=== PATIENT | female | born 1975 | race Caucasian/White ===

== ENCOUNTER 2018-09-23 10:32 | Inpatient (IN) | payer MEDICAID ==
[2018-09-23 11:04] LABS: RUPTURE FETAL MEMBRANES POSITIVE (NEGATIVE)
[2018-09-23] MEDS ORDERED: METHYLERGONOVINE 0.2 MG INJ IM ×2 (13:00→19:30)
[2018-09-23] MEDS ORDERED: OXYTOCIN 30 UNITS/LR 500 ML IV ×2 (13:00→19:30)
[2018-09-23] MEDS ORDERED: MISOPROSTOL 200 MCG TAB PR ×2 (13:00→19:30)
[2018-09-23] MEDS ORDERED: CARBOPROST 250 MCG INJ IM ×2 (13:00→19:30)
[2018-09-23 13:48] LABS: ADD MAN DIFF? NO
[2018-09-23 13:49] LABS: BASOPHILS % 0.2 % (0.0-2.0); EOSINOPHILS % 0.4 % (0.0-7.0); HEMATOCRIT 37.5 % (37.0-47.0); HEMOGLOBIN 12.6 g/dl (12.0-16.0); LYMPHOCYTES # 1.2 10^3/ul (0.8-2.9); LYMPHOCYTES % 13.2 % (15.0-51.0); MEAN CORPUSCULAR HEMOGLOBIN 32.2 pg (29.0-33.0); MEAN CORPUSCULAR HGB CONC 33.6 g/dl (32.0-37.0); MEAN CORPUSCULAR VOLUME 95.9 fl (82.0-101.0); MEAN PLATELET VOLUME 9.6 fl (7.4-10.4); MONOCYTE # 0.6 10^3/ul (0.3-0.9); MONOCYTES % 6.1 % (0.0-11.0); NEUTROPHIL # 7.3 10^3/ul (1.6-7.5); NEUTROPHILS % 79.9 % (39.0-77.0); PLATELET COUNT 213 10^3/UL (140-415); RED BLOOD COUNT 3.91 10^6/ul (4.20-5.40)
[2018-09-23 13:49] LABS: WHITE BLOOD COUNT 9.1 10^3/ul (4.8-10.8)
[2018-09-23 14:08] LABS: INR 0.79; PROTIME 11.1 Sec (11.9-14.9); PT RATIO 0.9
[2018-09-23 14:09] LABS: PARTIAL THROMBOPLASTIN TIME 24.5 Sec (23.0-35.0)
[2018-09-23 15:23] LABS: HEPATITIS B SURFACE ANTIGEN NEGATIVE (NEGATIVE)
[2018-09-23] MEDS ORDERED: OXYTOCIN 30 UNITS/LR 500 ML BAG IV (18:26)
[2018-09-23] MEDS ORDERED: DEXAMETHASONE 4 MG/ML 1 ML INJ (18:27)
[2018-09-23] MEDS ORDERED: ONDANSETRON 4 MG INJ (18:28)
[2018-09-23] MEDS: AZITHROMYCIN 500MG/NS (PMX) 250 ML IVPB (18:30)
[2018-09-23] MEDS ORDERED: morphine SULFATE/PF (10 MG/10 ML) INJ (18:35)
[2018-09-23] MEDS ORDERED: FENTAnyl 50 MCG/ML VIAL (18:36)
[2018-09-23] MEDS ORDERED: PHENYLephrine (100 MCG/ML) 10ML SYG (18:56)
[2018-09-23] MEDS ORDERED: HYDROmorphONE 0.5 MG/0.5 ML SYG IV ×2 (19:00)
[2018-09-23] MEDS ORDERED: NALOXONE (0.4 MG/ML) INJ IV (19:00)
[2018-09-23] MEDS ORDERED: ZOLPIDEM 5 MG TAB PO (19:00)
[2018-09-23] MEDS ORDERED: ONDANSETRON 4 MG INJ IV ×2 (19:00→19:30)
[2018-09-23 19:25] LABS: RAPID PLASMA REAGIN NONREACTIVE (NR)
[2018-09-23] MEDS: OXYTOCIN 30 UNITS/LR 500 ML IV ×2 (19:28→23:54)
[2018-09-23] MEDS: CEFAZOLIN 2 GM/50 ML (PMX) 50 ML IVPB (19:29)
[2018-09-23] MEDS ORDERED: ACETAMINOPHEN 325 MG TAB PO (19:30)
[2018-09-23] MEDS ORDERED: BENZOCAINE 20% 56 ML SPRAY TOP (19:30)
[2018-09-23] MEDS ORDERED: NACL 0.9% 3 ML SYG IV (19:30)
[2018-09-23] MEDS ORDERED: WITCH HAZEL/GLYCERIN PAD PR (19:30)
[2018-09-23] MEDS ORDERED: OXYCODONE/ASPIRIN (4.88/325) TAB PO (19:30)
[2018-09-23] MEDS: DIPHENHYDRAMINE 50 MG INJ IV (20:06)
[2018-09-23] MEDS: LACTATED RINGER'S 1,000 ML IV ×2 (20:42)
[2018-09-23] MEDS: SENNA/DOCUSATE NA (8.6MG/50MG) TAB PO (21:20)
[2018-09-23] MEDS ORDERED: CEFAZOLIN 2 GM/50 ML (PMX) 50 ML IVPB (22:00)
[2018-09-23] MEDS: KETOROLAC 30 MG INJ IV (23:06)
[2018-09-24] MEDS: CEFAZOLIN 2 GM/50 ML (PMX) 50 ML IVPB ×3 (02:14→17:48)
[2018-09-24] MEDS: LACTATED RINGER'S 1,000 ML IV ×2 (04:42→10:09)
[2018-09-24] MEDS: IBUPROFEN 800 MG TAB PO ×4 (06:00→18:00)
[2018-09-24 07:15] LABS: ADD MAN DIFF? NO
[2018-09-24 07:23] LABS: WHITE BLOOD COUNT 12.9 10^3/ul (4.8-10.8)
[2018-09-24 07:23] LABS: BASOPHILS % 0.1 % (0.0-2.0); HEMATOCRIT 35.7 % (37.0-47.0); HEMOGLOBIN 11.9 g/dl (12.0-16.0); LYMPHOCYTES % 7.7 % (15.0-51.0); MEAN CORPUSCULAR HEMOGLOBIN 32.5 pg (29.0-33.0); MEAN CORPUSCULAR HGB CONC 33.3 g/dl (32.0-37.0); MEAN CORPUSCULAR VOLUME 97.5 fl (82.0-101.0); MONOCYTE # 0.6 10^3/ul (0.3-0.9); MONOCYTES % 4.6 % (0.0-11.0); NEUTROPHIL # 11.3 10^3/ul (1.6-7.5); NEUTROPHILS % 87.1 % (39.0-77.0); PLATELET COUNT 218 10^3/UL (140-415); RED BLOOD COUNT 3.66 10^6/ul (4.20-5.40)
[2018-09-24] MEDS: SENNA/DOCUSATE NA (8.6MG/50MG) TAB PO ×2 (10:04→20:49)
[2018-09-24] MEDS: KETOROLAC 30 MG INJ IV (16:15)
[2018-09-24] MEDS: LANOLIN HPA 1 PKT TOP (20:50)
[2018-09-24] MEDS: OXYCODONE/ASPIRIN (4.88/325) TAB PO (22:59)
[2018-09-25] MEDS: IBUPROFEN 800 MG TAB PO ×5 (00:58→23:55)
[2018-09-25] MEDS: OXYCODONE/ASPIRIN (4.88/325) TAB PO ×2 (07:44→20:31)
[2018-09-25] MEDS: SENNA/DOCUSATE NA (8.6MG/50MG) TAB PO ×2 (10:18→20:31)
[2018-09-26] MEDS: IBUPROFEN 800 MG TAB PO ×2 (05:55→11:30)
[2018-09-26] MEDS: SENNA/DOCUSATE NA (8.6MG/50MG) TAB PO (09:14)
== END 2018-09-26 15:44 | disposition home or self-care (01) | DRG 788 ==
LOC: OBT 10:32 → L-D 10:33 → OBT 11:23 → L-D 11:31 → PP1 21:15
PROVIDERS: Obstetrics & Gynecology
PROC: 10D00Z1 Extraction of Products of Conception, Low, Open Approach (ICD-10-PCS; principal; 2018-09-23 16:00)
DX: O42.92 Full-term premature rupture of membranes, unspecified as to length of time between rupture and onset of labor (principal); O34.211 Maternal care for low transverse scar from previous cesarean delivery; O99.214 Obesity complicating childbirth; E66.9 Obesity, unspecified; Z3A.38 38 weeks gestation of pregnancy; Z37.0 Single live birth
CPT/HCPCS: 76818; 84112; 85025; 85610; 85730; 86592; 86850; 86900; 86901; 87340; 99464